=== PATIENT | male | born 1945 | race Caucasian/White ===

== ENCOUNTER → 2020-08-07 | Outpatient (CLI) | payer MEDICARE, OTHER ==
[~2020-08-07] MED LIST: ASPI325T17 PO; CELE200C PO; DOXA4TAB3 PO; ESOM40CA PO; GABA-826 PO; LEVO50CA2 PO
== END | disposition home or self-care (01) ==
LOC: CVU 07:23
PROVIDERS: ATTEND Family Medicine
DX: I35.8 Other nonrheumatic aortic valve disorders (principal); I65.23 Occlusion and stenosis of bilateral carotid arteries; R41.0 Disorientation, unspecified
CPT/HCPCS: 93306; 93356; 93880